=== PATIENT | male | born 1995 | race Caucasian/White ===

== ENCOUNTER 2019-01-26 19:56 | Emergency (ER) | payer SELFPAY ==
[~2019-01-26] VITALS: Ht 175.3 cm; Wt 71.7 kg
[2019-01-26 20:29] VITALS: Ht 175.3 cm; Wt 71.7 kg
[2019-01-27 01:02] VITALS: BP 140/69
== END 2019-01-27 01:02 | disposition home or self-care (01) ==
LOC: EDSEX 19:56 → ED 19:56
DX: L03.114 Cellulitis of left upper limb (principal); W55.01XA Bitten by cat, initial encounter; Y93.89 Activity, other specified; Y92.89 Other specified places as the place of occurrence of the external cause; Y99.8 Other external cause status
CPT/HCPCS: 90715; J0295